=== PATIENT | female | born 1990 | race Caucasian/White ===

== ENCOUNTER 2016-07-14 01:40 | Inpatient (IN) | payer OTHER, BC ==
[~2016-07-14] VITALS: Ht 160 cm; Wt 104.3 kg
[~2016-07-14 01:40] MED LIST: BCPILLS PO; RANI300T2 PO
[2016-07-14] MEDS ORDERED: PRENTAB26 PO (01:58)
[2016-07-14 01:59] VITALS: Ht 160 cm; Wt 104.3 kg
[2016-07-14] MEDS ORDERED: LACTATED RINGER'S 1000ML 1,000 ML IV SCH (02:10)
[2016-07-14] MEDS ORDERED: LACTATED RINGER'S 1000ML 1,000 ML IV PRN (02:10)
[2016-07-14] MEDS ORDERED: BUPIVACAINE 0.25% 30 ML VIAL ONE (02:15)
[2016-07-14] MEDS ORDERED: EpHEDrine SULFATE INJ 50 MG/ML AMP ONE (02:15)
[2016-07-14] MEDS ORDERED: FENTANYL 2MCG/ML ROPIV 1.25MG/ML 100ML BAG EPI ONE (02:16)
[2016-07-14] MEDS ORDERED: FENTANYL CITRATE INJ 50 MCG/1 ML 2 ML VIAL ONE (02:16)
[2016-07-14 02:24] LABS: HEMATOCRIT 36.4 % (37-47); MEAN CELL VOLUME 81.8 fL (80-100); MEAN CORPUSCULAR HEMOGLOBIN 28.5 pg (25-34); MEAN PLATELET VOLUME 11.8 fL (7.4-10.4); PLATELET COUNT 188 K/uL (130-400); RED BLOOD COUNT 4.45 M/uL (4.2-5.4); WHITE BLOOD COUNT 13.04 K/uL (4.8-10.8)
[2016-07-14 02:27] LABS: MEAN CORPUSCULAR HGB CONC 34.9 g/dl (32-36)
[2016-07-14] MEDS ORDERED: NALOXONE HCL INJ 1 MG in SODIUM CHLORIDE 0.9% 1000ML 1,000 ML IV PRN ×4 (03:22)
[2016-07-14] MEDS ORDERED: LACTATED RINGER'S 1000ML 500 ML IV PRN (03:22)
[2016-07-14] MEDS ORDERED: NALOXONE HCL INJ 0.4 MG/1 ML VIAL/CARP IV PRN (03:30)
[2016-07-14] MEDS ORDERED: NALBUPHINE HCL INJ 10 MG/ML AMP IV PRN (03:30)
[2016-07-14] MEDS ORDERED: ONDANSETRON INJ 2 MG/ML 2 ML VIAL IV PRN (03:30)
[2016-07-14] MEDS ORDERED: FENTANYL 2MCG/ML ROPIV 1.25MG/ML 100ML BAG EPI PRN (03:30)
[2016-07-14] MEDS ORDERED: EpHEDrine SULFATE INJ 50 MG/ML AMP IV PRN (03:30)
[2016-07-14] MEDS ORDERED: DiphenhydrAMINE HCL 50 MG/ML VIAL IV PRN (03:30)
[2016-07-14] MEDS ORDERED: PROMETHAZINE HCL INJ 25 MG in SODIUM CHLORIDE 0.9% 50ML 50 ML IV PRN (03:30)
[2016-07-14] MEDS ORDERED: OXYTOCIN 30 UNITS/500ML NSS IV ONE (05:06)
[2016-07-14] MEDS ORDERED: BENZOCAINE 20% AER SPR 82.5 GM CAN EXT PRN (05:45)
[2016-07-14] MEDS ORDERED: SUPERCREAM 0.870 % 15GM JAR EXT PRN (05:45)
[2016-07-14] MEDS ORDERED: HYDROCORTISONE ACETATE 25 MG SUPP PR PRN (05:45)
[2016-07-14] MEDS ORDERED: LANOLIN OINT EXT PRN ×2 (05:45)
[2016-07-14] MEDS ORDERED: ACETAMINOPHEN/CODEINE 300/30MG TAB PO PRN ×2 (05:45)
[2016-07-14] MEDS ORDERED: ACETAMINOPHEN 325 MG TAB PO PRN (05:45)
[2016-07-14] MEDS ORDERED: OXYTOCIN 30 UNITS/500ML NSS IV PRN (05:45)
[2016-07-14] MEDS: IBUPROFEN 600 MG TAB PO PRN ×3 (06:28→17:33)
--- NOTE | 2016-07-14 09:29 | DELIVERY SUMMARY ---
DATE OF OPERATION: 07/14/2016 DATE OF DELIVERY: 07/14/2016. FINDINGS: Viable male with Apgars of 8 and 9. The baby delivered spontaneously over a midline second degree laceration. Thick meconium. Vigorous cry at , terminating meconium resuscitation. Cord gases, cord blood samples obtained. Placenta delivered spontaneously. Laceration repair with 4-0 Vicryl in a routine. ESTIMATED BLOOD LOSS: 300 mL. LABOR NOTE: The patient is a 25-year-old 1 para 0 with and EDC of 12 July at 40 plus weeks gestational age, who presented to labor and delivery in active labor. Contractions began late in the p.m. of the and increased in intensity. She denied rupture of membranes or vaginal bleeding. The patient with a history of PCOS and conceived this on Femara. She had a positive chlamydia culture on her first visit, treated with Zithromax. Repeat culture were negative. Father of the baby with a history of a congenital heart defect. The patient had a echo, which was within normal limits. blood work showed blood type of A+, antibody negative. Rubella immune. Hepatis B negative. She had a negative quad screen. She had an elevated 1 hour Glucola at 16 weeks with normal 2 hour glucose tolerance test at 16 and 28 weeks. She had a negative third trimester beta strep culture. Upon admission the patient was 5-6 cm dilated, in active labor. Tracing was a category 2. Anesthesia was consulted and an epidural was placed. The patient progressed to full dilatation. Had rupture of membranes with thick meconium. The patient began her second stage and pushed very effectively. There were deep decelerations during the second stage, treated with IV fluids and oxygen. The patient pushed for approximately 20 minutes delivering the viable male . There was a good vigorous cry at , terminating meconium resuscitation. Cord gases, cord blood samples obtained. Placenta was delivered spontaneously and meconium stained. Inspection of the perineum showed a midline second degree laceration. This was repaired with 4-0 Vicryl. Estimated blood loss 300 mL. Sponge and needle count was correct. I attest to the content of the Intraoperative Record and any orders documented therein. Any exceptio ns are noted below.
[2016-07-14 10:20] VITALS: BP 145/86; PULSE 86; TEMP 36.5; O2SAT 98
[2016-07-14] MEDS: DOCUSATE SODIUM 100 MG CAP PO SCH ×2 (10:37→20:27)
[2016-07-14] MEDS: PRENATAL VITAMIN TAB PO SCH (10:37)
[2016-07-14] MEDS: FERROUS SULFATE 325 MG TAB PO SCH (10:38)
[2016-07-14] MEDS ORDERED: LIDOCAINE HCL 2% JELLY 30 ML TUBE EXT ONE (11:22)
--- NOTE | 2016-07-14 11:48 | Anesthesia Procedure Note ---
Anesthesia Epidural Removal Nt Date & Time Jul 14, 2016 at 11:47 Vital Signs Pain Intensity: 4.0 Notes Mental Status: alert / awake / arousable, participated in evaluation Nausea / Vomiting: adequately controlled Pain: adequately controlled Airway Patency, RR, SpO2: stable & adequate BP & HR: stable & adequate Hydration State: stable & adequate Neuraxial Anesthesia: was administered, sensory block is resolving Anesthetic Complications: no major complications apparent, pt satisfied with anesthetic care Epidural: removed without complications, with tip intact
[2016-07-14 12:00] VITALS: BP 148/86; PULSE 93; TEMP 36.7
[2016-07-14 12:30] VITALS: BP 147/91
[2016-07-14 15:50] VITALS: BP 127/86; PULSE 99; TEMP 36.7; O2SAT 97
[2016-07-14 20:30] VITALS: BP 141/88; PULSE 78; TEMP 36.6
[2016-07-14 23:30] VITALS: BP 128/85; PULSE 80; TEMP 36.8
[2016-07-15 04:00] VITALS: BP 130/80; PULSE 79; TEMP 36.7
--- NOTE | 2016-07-15 06:22 | Progress Note ---
Subjective Jul 15, 2016. Subjective conversation w/ patient, physical exam Ambulation: ambulating normally Voiding: bennett catheter in place Passing Gas: Yes Diet Tolerance: Regular Diet Lochia: Small Feeding Type: Breast Feeding Pain: No pain reported this morning, patient has taken Motrin overnight Review of Systems Constitutional: No chills, No fever Respiratory: No cough, No shortness of breath Cardiac: No chest pain Breast: No breast pain Abdomen: No nausea, No pain, No vomiting Female : No dysuria Objective Vital Signs Date Time Temp Pulse Resp B/P Pulse Ox O2 Delivery O2 Flow Rate FiO2 07/15/16 04:00 36.7 79 18 130/80 Room Air 07/14/16 23:30 Room Air 07/14/16 23:30 36.8 80 16 128/85 Room Air 07/14/16 20:30 36.6 78 16 141/88 Room Air 07/14/16 15:50 97 Room Air 07/14/16 15:50 36.7 99 16 127/86 97 Room Air 07/14/16 12:30 147/91 07/14/16 12:00 36.7 93 20 148/86 Room Air 07/14/16 10:20 36.5 86 20 145/86 98 Room Air 07/14/16 10:20 Room Air Physical Exam General Appearance: WELL-APPEARING, WD/WN, NO APPARENT DISTRESS Respiratory/Chest: lungs clear, normal breath sounds Cardiovascular: regular rate, rhythm, no gallop, no murmur Abdomen: normal bowel sounds, non tender, soft Fundus: Firm, Relation to Umbilicus (At umbilicus) Extremities: no calf tenderness Laboratory Results Last 24 Hours Test 07/15/16 04:44 Medications Current Inpatient Medications Medications (Trade) Dose Ordered Sig/Tess Route Start Time Stop Time Status Last Admin Dose Admin Lactated Ringer's (Lr 1000ml) 1,000 ml @ 125 mls/hr Q8H IV 07/14/16 02:10 07/16/16 02:09 07/14/16 03:20 125 MLS/HR Oxytocin (Pitocin IV) 30 units UD PRN IV 07/14/16 05:45 08/13/16 05:44 Benzocaine (Dermoplast Aero Spr) 1 appln PRN PRN EXT 07/14/16 05:45 08/13/16 05:44 07/14/16 09:07 1 APPLN Cocaine HCl (Supercream 0.870% Cr) BID PRN EXT 07/14/16 05:45 07/28/16 05:44 Hydrocortisone Acetate (Anusol Hc Supp) 25 mg BID PRN VA 07/14/16 05:45 08/13/16 05:44 Lanolin (Lanolin Oint) PRN PRN EXT 07/14/16 05:45 08/13/16 05:44 Prenat Multivit/ General Office Dispatcher/Iron/Folic Ac ( Vitamin Tab) 1 tab DAILY PO 07/14/16 08:00 08/13/16 07:59 07/14/16 10:37 1 TAB Ibuprofen (Motrin Tab) 600 mg Q4H PRN PO 07/14/16 05:45 08/13/16 05:44 07/14/16 17:33 600 MG Acetaminophen (Tylenol Tab) 650 mg Q6H PRN PO 07/14/16 05:45 08/13/16 05:44 Acetaminophen/ Codeine Phosphate (Tylenol w/ Codeine #3 Tab) 1 tab Q4H PRN PO 07/14/16 05:45 08/13/16 05:44 Acetaminophen/ Codeine Phosphate (Tylenol w/ Codeine #3 Tab) 2 tab Q4H PRN PO 07/14/16 05:45 08/13/16 05:44 Bisacodyl (Dulcolax Tab) 5 mg 20 PO 07/15/16 20:00 07/15/16 20:01 Docusate Sodium (coLACE CAP) 100 mg BID PO 07/14/16 08:00 08/13/16 07:59 07/14/16 20:27 100 MG Ferrous Sulfate (Feosol Tab) 325 mg DAILY PO 07/14/16 08:00 08/13/16 07:59 07/14/16 10:38 325 MG Assessment and Plan Post- Day#: 1 Continue Routine Care: - Vital Signs reviewed and WNL (temp max 36.8) - Blood Type: A+, GBS- , Rubella Immune - Patient doing well clinically - Encourage Ambulation today - Pain well controlled with Motrin - Tolerating PO diet - Remove bennett this morning Resident Physician Supervision Note: I interviewed and examined the patient. Discussed with Dr. Dloomy and agree with findings and plan as documented in the note. Any exceptions or clarifications are listed here: Pt with urinary retention requiring Bennett insertion. Will remove after 24 hours and reassess. Documented By: Aniket William
[2016-07-15 08:41] LABS: HEMATOCRIT 33.2 % (37-47)
[2016-07-15 08:45] VITALS: BP 128/83; PULSE 88; TEMP 36.5
[2016-07-15] MEDS: FERROUS SULFATE 325 MG TAB PO SCH (08:52)
[2016-07-15] MEDS: IBUPROFEN 600 MG TAB PO PRN ×2 (08:52→21:05)
[2016-07-15] MEDS: DOCUSATE SODIUM 100 MG CAP PO SCH ×2 (08:53→20:04)
[2016-07-15] MEDS: PRENATAL VITAMIN TAB PO SCH (08:53)
[2016-07-15 15:45] VITALS: BP 124/85; PULSE 87; TEMP 36.7
[2016-07-15] MEDS ORDERED: BISACODYL 5 MG TABEC PO SCH (20:00)
[2016-07-15 23:35] VITALS: BP 125/85; PULSE 96; TEMP 36.7
--- NOTE | 2016-07-16 06:34 | Progress Note ---
Subjective Jul 16, 2016. Subjective conversation w/ patient, physical exam Ambulation: ambulating normally Voiding: no voiding problems Passing Gas: Yes Diet Tolerance: Regular Diet Lochia: Small Feeding Type: Breast Feeding Pain: No pain reported this morning Review of Systems Constitutional: No chills, No fever Respiratory: No cough, No shortness of breath Cardiac: No chest pain Breast: No breast pain Abdomen: No nausea, No pain, No vomiting Female : No dysuria Objective Vital Signs Date Time Temp Pulse Resp B/P Pulse Ox O2 Delivery O2 Flow Rate FiO2 07/15/16 23:35 36.7 96 18 125/85 Room Air 07/15/16 23:35 Room Air 07/15/16 15:45 36.7 87 18 124/85 Room Air 07/15/16 15:45 Room Air 07/15/16 08:45 36.5 88 18 128/83 Room Air Physical Exam General Appearance: WELL-APPEARING, WD/WN, NO APPARENT DISTRESS Respiratory/Chest: lungs clear, normal breath sounds Cardiovascular: regular rate, rhythm, no gallop, no murmur Abdomen: normal bowel sounds, non tender, soft Fundus: Firm, Relation to Umbilicus (At umbilicus) Extremities: no calf tenderness Laboratory Results Last 24 Hours Test 07/15/16 08:26 Hemoglobin 11.4 g/dL Hematocrit 33.2 % Medications Current Inpatient Medications Medications (Trade) Dose Ordered Sig/Tess Route Start Time Stop Time Status Last Admin Dose Admin Oxytocin (Pitocin IV) 30 units UD PRN IV 07/14/16 05:45 08/13/16 05:44 Benzocaine (Dermoplast Aero Spr) 1 appln PRN PRN EXT 07/14/16 05:45 08/13/16 05:44 07/14/16 09:07 1 APPLN Cocaine HCl (Supercream 0.870% Cr) BID PRN EXT 07/14/16 05:45 07/28/16 05:44 Hydrocortisone Acetate (Anusol Hc Supp) 25 mg BID PRN ND 07/14/16 05:45 08/13/16 05:44 Lanolin (Lanolin Oint) PRN PRN EXT 07/14/16 05:45 08/13/16 05:44 Prenat Multivit/ Double Bottom Driver/Iron/Folic Ac ( Vitamin Tab) 1 tab DAILY PO 07/14/16 08:00 08/13/16 07:59 07/15/16 08:53 1 TAB Ibuprofen (Motrin Tab) 600 mg Q4H PRN PO 07/14/16 05:45 08/13/16 05:44 07/15/16 21:05 600 MG Acetaminophen (Tylenol Tab) 650 mg Q6H PRN PO 07/14/16 05:45 08/13/16 05:44 Acetaminophen/ Codeine Phosphate (Tylenol w/ Codeine #3 Tab) 1 tab Q4H PRN PO 07/14/16 05:45 08/13/16 05:44 Acetaminophen/ Codeine Phosphate (Tylenol w/ Codeine #3 Tab) 2 tab Q4H PRN PO 07/14/16 05:45 08/13/16 05:44 Docusate Sodium (coLACE CAP) 100 mg BID PO 07/14/16 08:00 08/13/16 07:59 07/15/16 20:04 100 MG Ferrous Sulfate (Feosol Tab) 325 mg DAILY PO 07/14/16 08:00 08/13/16 07:59 07/15/16 08:52 325 MG Assessment and Plan Post- Day#: 2 Continue Routine Care: - Vital Signs reviewed and WNL (temp max 36.7) - Blood Type: A+, GBS- , Rubella Immune - Patient doing well clinically - Encourage Ambulation today - Pain well controlled with Motrin - Tolerating PO diet - Gómez removed yesterday and voiding well, no feelings of residual retention - Discharge today Resident Physician Supervision Note: I interviewed and examined the patient. Discussed with Dr. Avitia and agree with findings and plan as documented in the note. Any exceptions or clarifications are listed here: [None] Documented By: Wan Caballero
--- NOTE | 2016-07-16 06:36 | Discharge Instructions ---
Discharge Instructions Admission Reason for Admission: LABOR (Gopal Avitia MD) Discharge Discharge Diagnosis / Problem: Vaginal Delivery (Gopal Avitia MD) Discharge Goals Goal(s): Routine recovery after delivery (Gopal Avitia MD) Medications Continue Dispensed Medications: supercream, dermaplast, tucks, lansinoh (Gopal Avitia MD) Activity Recommendations Activity Limitations: per Instructions/Follow-up section . (Gopal Avitia MD) Instructions / Follow-Up Instructions / Follow-Up ACTIVITY RECOMMENDATIONS: * Gradual return to full activity over the next 2-3 weeks. * No lifting - nothing heavier than baby over the next 2-3 weeks. * Do not engage in vigorous exercise, sexual activity or sports until cleared by your physician. * Do not drive or operate any motorized equipment until cleared by your physician. * You may shower/bathe daily. MEDICATIONS: For discomfort or pain, you may use Acetaminophen (Tylenol), Ibuprofen (Advil), or Naproxen (Aleve) following the package directions. For constipation you may use Colace following the package directions. BREAST CARE: If you are not breast feeding: * Wear a supportive bra 24 hours a day for one to two weeks. * Avoid stimulating your breasts and nipples as much as possible during the first few weeks after delivery. * When taking a shower, have the warm water hit your back, not breasts. * When your breasts feel full, apply ice packs. Usually three to four times a day helps ease the discomfort. * Take a mild pain medication (Tylenol / Motrin) when you are uncomfortable. If breast feeding: * Use breast milk to lubricate nipples. Lansinoh cream may be used for sore nipples. You do not need to remove cream prior to breast feeding. If using a different brand of cream, check the label for directions regarding removal of cream prior to nursing. * Wear a supportive bra. * If having problems with breasts or breast feeding, call a network security consultant or your health care provider. EPISIOTOMY CARE: After delivery, if you have an episiotomy (stitches), the following steps will ease discomfort and aid healing. * For the first 24 hours after delivery, place ice packs next to your episiotomy to help reduce swelling. * After the first 24 hour-period, sitz baths, either portable or in the tub, are suggested. A shower with a shower arm sprayed over the episiotomy may be comforting. * Alyssia care should be done after each voiding and bowel movement. Squirt warm water from a plastic bottle over the perineum (region of the body between the anus and urinary opening) and pat dry. * Use Dermoplast to ease discomfort. Shake container. [place] directly over the episiotomy. Place a Tucks on a clean sanitary pad next to your episiotomy. SPECIAL CARE INSTRUCTIONS: When you are discharged from the hospital, it is important for you to follow the instructions listed below: * During the first week at home, you should be able to care for yourself and your baby. In addition, the usual light household activities are encouraged. * Limit your activities to the way you feel. Do not try to clean the house or move furniture. Be sensible. * If you actively engage in sports and have done so up until the time of your delivery, you may resume these activities as soon as you feel able. This may take up to one month or even longer. Use good judgment. * Continue to take your vitamins for at least six weeks after the of your baby. * Your diet need not be limited unless you were on a special diet before your delivery. Breast-feeding mothers need around 2500 calories per day and at least 64-80 ounces of fluid per day (8 to 10 glasses). * You should eat foods from the four major food groups. Crash diets or fad diets are to be avoided. Eating lean meats, fresh fruits and vegetables, low-fat dairy products, high fiber foods and a regular exercise program, will help you get back to your pre- weight without putting your health at risk. * Constipation is sometimes a problem after delivery. Take a mild laxative as needed. If breast feeding, Milk of Magnesia is acceptable to use. You may use a suppository or Fleets enema if no episiotomy. * A daily shower or tub bath is suggested. Be sure to thoroughly and gently dry the perineum. * A bloody vaginal discharge will usually continue until around four weeks post . A small amount of bleeding may continue for as long as six weeks. Vaginal discharge changes from the bright red bleeding after delivery to pink then brownish and finally yellowish-pink before becoming white and disappearing. * Bleeding may increase with activity. Your first period may come in 4-8 weeks. If you are breast feeding, your period may be delayed even longer. * [place] (sex) can begin whenever both you and your partner feel comfortable and do not have any form of genital infection. It is recommended that you wait at least six weeks for internal and external healing to occur. If you have questions, please talk to your health care practitioner. A condom should be used to prevent infection and . * Foreplay, gentle intercourse and lubrication is very important the first several times to prevent pain. A water-based lubricant such as K-Y jelly or Astroglide may be used. * If you have RH negative blood and your baby is RH positive, you will receive RHOGAM by injection prior to discharge. The nurse will give you a card to keep with you that has the date and place that you received RHOGAM after delivery. * During your care, you had a Rubella screen done to check for the presence of rubella antibodies in your blood. If your test was negative, you will receive a Rubella vaccine prior to discharge. This vaccine may cause a fever, soreness at the injection site and flu-like symptoms. If these symptoms persist, notify your health care practitioner. is not advised for one month after a Rubella vaccine. * Verbalizes understanding of car seat law as reviewed with patient nursing. * Car Seat hand-out given and reviewed with patient by nursing. * Shaken baby information reviewed with patient by nursing. Call you doctor if: * Heavy bleeding (saturating several pads an hour) or passing clots the size of your fist. * A fever >101 degrees F (38.3 degrees C) on two occasions four hours apart and /or chills. * Unusual pain in the pelvic or vaginal areas. * "Baby Blues" lasting longer than two weeks. If you have any questions or concerns, call your health care practitioner at . FOLLOW UP VISIT: * Please call the office at to schedule a 6 week examination. It is important you keep this appointment. It is important for you to make arrangements for either yearly or twice yearly check-ups thereafter. (Gopal Avitia MD) Current Hospital Diet Patient's current hospital diet: Regular OB Diet (Gopal Avitia MD) Discharge Diet Recommended Diet: Regular Diet (Gopal Avitia MD) Pending Studies Studies pending at discharge: no (Gopal Avitia MD) Laboratory Results Lipid Panel Test 04/16/16 07:00 Range/Units Triglycerides Level 300 H 0-150 mg/dl Cholesterol Level 201 H 0-200 mg/dl HDL Cholesterol 44 mg/dl Cholesterol/HDL Ratio 4.6 LDL Cholesterol, Calculated 97 mg/dl (Gopal Avitia MD) Medical Emergencies . Who to Call and When: Medical Emergencies: If at any time you feel your situation is an emergency, please call 911 immediately. . (Gopal Avitia MD) Non-Emergent Contact Non-Emergency issues call your: [place] . (Gopal Avitia MD) . "Provider Documentation" section prepared by Gopal Avitia. (Gopal Avitia MD) VTE Core Measure Inpt VTE Proph given/why not?: Treatment not indicated (Gopal Avitia MD)
[2016-07-16 07:50] VITALS: BP 125/83; PULSE 83; TEMP 36.5
[2016-07-16] MEDS: DOCUSATE SODIUM 100 MG CAP PO SCH (07:53)
[2016-07-16] MEDS: FERROUS SULFATE 325 MG TAB PO SCH (07:53)
[2016-07-16] MEDS: PRENATAL VITAMIN TAB PO SCH (07:53)
[2016-07-16] MEDS: IBUPROFEN 600 MG TAB PO PRN (08:47)
[2016-07-16 10:10] VITALS: BP_DIAS 83; PULSE 83; TEMP 36.5
== END 2016-07-16 11:05 | disposition home or self-care (01) | DRG 774 ==
LOC: C.LD 01:40 → C.OPB 01:40 → C.LD 02:12 → C.OPB 02:12 → C.OBG 09:13
PROVIDERS: ADMIT Obstetrics & Gynecology; ATTEND Obstetrics & Gynecology
PROC: 10E0XZZ Delivery of Products of Conception, External Approach (ICD-10-PCS; principal; 2016-07-14)
PROC: 0KQM0ZZ Repair Perineum Muscle, Open Approach (ICD-10-PCS; principal; 2016-07-14)
DX: O48.0 Post-term pregnancy (principal); O98.32 Other infections with a predominantly sexual mode of transmission complicating childbirth; Z68.41 Body mass index [BMI] 40.0-44.9, adult; O99.354 Diseases of the nervous system complicating childbirth; O77.0 Labor and delivery complicated by meconium in amniotic fluid; O70.1 Second degree perineal laceration during delivery; A56.8 Sexually transmitted chlamydial infection of other sites; G43.909 Migraine, unspecified, not intractable, without status migrainosus; E66.01 Morbid (severe) obesity due to excess calories; O99.214 Obesity complicating childbirth; O99.02 Anemia complicating childbirth; D64.9 Anemia, unspecified; O76 Abnormality in fetal heart rate and rhythm complicating labor and delivery; O99.284 Endocrine, nutritional and metabolic diseases complicating childbirth; E28.2 Polycystic ovarian syndrome; O90.89 Other complications of the puerperium, not elsewhere classified; R33.9 Retention of urine, unspecified; Z37.0 Single live birth; Z3A.40 40 weeks gestation of pregnancy

== ENCOUNTER → 2016-09-12 | Outpatient (CLI) | payer BC, OTHER ==
[~2016-09-12] MED LIST changes: -BCPILLS PO; +PRENTAB26 PO; -RANI300T2 PO
[2016-09-12 12:50] LABS: URINE APPEARANCE CLEAR (CLEAR); URINE BILIRUBIN NEG (NEG); URINE COLOR YELLOW; URINE EPITHELIAL CELL AUTO >30 /lpf (0-5); URINE NITRITE NEG (NEG); URINE SPECIFIC GRAVITY 1.019 (1.000-1.030); UROBILINOGEN NEG (NEG)
[2016-09-12 12:56] LABS: MANUAL MICROSCOPIC REQUIRED? NO; REVIEW REQ? NO
== END | disposition home or self-care (01) ==
LOC: C.LABSPEC 11:38
PROVIDERS: ATTEND Obstetrics & Gynecology
DX: R39.9 Unspecified symptoms and signs involving the genitourinary system (principal)

== ENCOUNTER → 2016-12-13 | Outpatient (CLI) | payer OTHER ==
[2016-12-13 09:54] LABS: CHOLESTEROL 198 mg/dl (0-200); GLUCOSE,FASTING 93 mg/dl (70-99); TRIGLYCERIDES 166 mg/dl (0-150)
[2016-12-13 10:03] LABS: HDL CHOLESTEROL 42 mg/dl
== END | disposition home or self-care (01) ==
LOC: C.LAB1850 07:23
PROVIDERS: ATTEND Obstetrics & Gynecology
DX: Z00.00 Encounter for general adult medical examination without abnormal findings (principal)

== ENCOUNTER → 2017-09-25 | Outpatient (CLI) | payer OTHER | END | disposition home or self-care (01) | LOC: C.PAPS 09:07 | PROVIDERS: ATTEND Obstetrics & Gynecology | DX: Z01.419 Encounter for gynecological examination (general) (routine) without abnormal findings (principal) ==

== ENCOUNTER 2020-05-11 10:36 | Inpatient (IN) ==
--- NOTE | 2020-05-11 11:35 | History & Physical Report ---
Date of Service May 11, 2020 Assessment & Plan (1) Breech presentation of fetus: 29 y/o at 39 wga presenting with anhydramnios and breech presentation 1. VSS 2. Fetus cat 1 3. Anhydramnios - given new dx would rec delivery today rather than defer delivery until scheduled CS tomorrow. BSUS confirmed breech presentation still, Discussed ECV vs CS, pt had previously declined ECV and declined today. Discussed indications, risks, benefits, and alternatives to CS w/ risks for CS including infection, bleeding, injury to adjacent structures (bowel, bladder, ureters, blood vessels, nerves, baby), possible need for life saving blood transfusion and/or hysterectomy. Pt and verbalized understanding, consent signed. 4. Last ate at 7am, as fetus looks reactive currently, anesthesia recommends waiting until 1pm for delivery but will proceed sooner if tracing becomes co ncerning 5. GDM - will obtain BG on admission History of Present Illness Chief Complaint: Anhydramnios, breech Primary Care Provider: Lyndon Hampton, DO 29 y/o at 39 wga w/ ZEV 05/18/20 by LMP 08/12/19 c/w 1st tri US presents to L&D for delivery. Pt was seen today as pre-op in clinic for planned primary CS tomorrow due to breech presentation. At [facility] today, NST obtained for velamentous cord insertion was NR. BPP 6/8, -2 due to no measurable fluid pocket. Given GA and anhydramnios, recommended to present to L&D for delivery. On arrival +FM and irreg ctx; denies LOF or VB PNI: 1. Breech presentation 2. Vanishing twin ~8wks 3. HR panorama x 3, unclear if due to aneuploidy of current fetus or from vanishing twin. Was offered MFM c/s, pt did not see them and would not accept invasive testing 4. Velamentous cord insertion 5. A1GDM, reports postprandials 120s-130s, was told did not need to do fastings 6. Hypothyroid, synthroid 150mcg. Needs to re-est with PCP for mgt pp 7. FOB w/ CHD did not need surgery, echo wnl 8. Hx chlamydia 09/2019, neg JOHNATHAN at 28 wks Past [employer] Hx: G1 at 40 wks G2 current Menarche 12, periods irreg prev and needed provera due to PCOS Hx chlamydia in this Last pap 09/2019 ASCUS/-HPV Allergies Allergy/AdvReac Type Severity Reaction Status Date / Time No Known Allergies Allergy Verified 05/11/20 09:07 Home Medications Home Medications Medication Instructions Recorded Confirmed Type prenat.vits,fito,mzy-unug-jeaqs 1 tab PO PM 09/29/19 05/11/20 History acetone (urine) test #50 ea 03/07/20 05/11/20 Rx blood sugar diagnostic #150 ea 03/07/20 05/11/20 Rx blood-glucose meter #1 ea 03/07/20 05/11/20 Rx lancets 33 gauge #150 ea 03/07/20 05/11/20 Rx levothyroxine 150 mcg PO QAM 05/10/20 05/11/20 History Patient History Medical History Gestational diabetes mellitus (GDM) in third trimester Hx of chlamydia infection HX Hx of varicella Hypothyroidism Ovarian cyst JUST MONITORING PCOS (polycystic ovarian syndrome) Surgical History S/P cholecystectomy [place] teeth removed Family History Uncle Cancer Aunt Breast cancer Social History Smoking Status: Never smoker Second Hand Exposure: No; Do You Dip or Chew Tobacco: No; Tobacco Cessation Education Requested by Patient: No Hx Alcohol Use: No Hx Substance Use: No Preferred Language: Azeri Communication Ability: Effective Human Resource Consultant Required: No Beliefs That Will Affect Care: None marital status: marital status details: Gualberto Garcia (29) [phone] Current Living Situation: Spouse Current Living Situation Comment: lives with spouse and son, 2 dogs current occupational status: employed current occupation: [employer] Other Information That Helps Us Care for You: No Feels Safe at Home: Yes Safety Concerns: Feels Safe At This Time Assistive Devices: Contacts and Glasses Physical Exam Constitutional: WD/WN, vitals as above no acute distress Respiratory: normal respiratory effort; no respiratory distress and no labored breathing Gastrointestinal (Abdomen): Inspection/Auscultation: abdomen normal to inspection Percussion/Palpation: abdomen soft (gravid); abdomen nontender and no guarding Genitourinary: OB Exam Abdomen: + breech (by BSUS on L&D) and + irregular contractions OB Exam Monitor Tracing: + external FHT monitor used, + external uterine monitor used and + category I (140/mod/+accel/-decel) Results & Data ([facility]) Vital Signs (Past 12 Hours) Vital Signs Temp Pulse Resp BP 05/11/20 10:48 99.1 F 20 05/11/20 10:45 100 H 142/89 H Laboratory Results A+ RPR NR Hep B NR rubella immune GC neg CT + 09/2019, neg JOHNATHAN HIV neg GBS neg COVID neg ant plac HR cfDNA x 3, see PNI Coding Level of Care Code None Diagnoses Breech presentation of fetus O32.1XX0
[2020-05-11] MEDS ORDERED: LACTATED RINGER'S 1,000 ML IV SCH (11:45)
[2020-05-11] MEDS ORDERED: CITRIC ACID/SODIUM CITRATE 15 ML UDC PO SCH (12:00)
[2020-05-11 12:01] LABS: Basophils # (auto) 0.02 K/uL (0-0.2); Basophils % (auto) 0.2 %; Eosinophils # (auto) 0.06 K/uL (0-0.5); Eosinophils % (auto) 0.6 %; Hematocrit (blood only) 37.3 % (37-47); Hemoglobin 12.4 g/dL (12.0-16.0); Immature Granulocytes # (auto) 0.06 K/uL (0.00-0.02); Immature Granulocytes % (auto) 0.6 %; Lymphocytes # (auto) 1.88 K/uL (1.2-3.4); Lymphocytes % (auto) 17.7 %; Mean Corpuscular Hemoglobin 28.6 pg (25-34); Mean Corpuscular Volume 85.9 fL (80-100); Mean Platelet Volume 11.4 fL (7.4-10.4); Monocytes # (auto) 0.88 K/uL (0.11-0.59); Monocytes % (auto) 8.3 %; Neutrophils # (auto) 7.75 K/uL (1.4-6.5); Neutrophils % (auto) 72.6 %; Platelet Count 214 K/uL (130-400); RDW Coefficient of Variation 14.2 % (11.5-14.5); RDW Standard Deviation 44.6 fL (36.4-46.3); Red Blood Count 4.34 M/uL (4.2-5.4); White Blood Count 10.65 K/uL (4.8-10.8)
[2020-05-11 12:23] LABS: Mean Corpuscular Hgb Conc 33.2 g/dL (32-36)
[2020-05-11] MEDS ORDERED: OXYTOCIN 10 UNITS/ML VIAL ONE (12:50)
[2020-05-11] MEDS ORDERED: fentaNYL citrate 100 MCG/2 ML VIAL ONE (12:50)
[2020-05-11] MEDS ORDERED: MoRPHine SULFATE PF 1 MG/ML 10 ML AMP/VIAL ONE (12:50)
[2020-05-11 12:51] LABS: Alanine Aminotransferase 15 U/L (12-78); Albumin Level 2.6 gm/dl (3.4-5.0); BUN Creatinine Ratio 10.9 (10-20); Blood Urea Nitrogen 5 mg/dl (7-18); Calcium 8.7 mg/dl (8.5-10.1); Carbon Dioxide 20 mmol/L (21-32); Chloride 113 mmol/L (98-107); Creatinine Clr Calc Pharmacy 195.7 ml/min; Est GFR (African American) > 150.0; Est GFR (Non-African American) 131.7; Glucose 68 mg/dl (70-99); Potassium 3.8 mmol/L (3.5-5.1); Sodium 141 mmol/L (136-145)
[2020-05-11 12:54] LABS: Albumin Globulin Ratio 0.7 (0.9-2); Alkaline Phosphatase 166 U/L (45-117); Aspartate Aminotransferase 10 U/L (15-37); Bilirubin,Total 0.3 mg/dl (0.2-1); Globulin 3.7 gm/dl (2.5-4.0); Total Protein 6.3 gm/dl (6.4-8.2)
--- NOTE | 2020-05-11 13:02 | Anesthesiology Consultation ---
Date of Service May 11, 2020 Assessment & Plan ASA ASA2 Proposed Anesthesia Anesthesia Type: General and MAC Spinal Risk / Benefits Reviewed With: PT / POA / Parent / Guardian, Accepts Plan and Informed Consent Obtained History Surgery Operation Date: 05/11/20 10:45 Proposed Procedures p Section in LD - Martine May MD Operation Date: 05/12/20 07:30 Proposed Procedures p Section - Shawna Pena DO Height/Weight Height: 5 ft 3 in Weight: 104.326 kg Allergies Allergy/AdvReac Type Severity Reaction Status Date / Time No Known Allergies Allergy Verified 05/11/20 09:07 Medications Home Medications Medication Instructions Recorded Confirmed Last Taken prenat.vits,fito,bvg-ercp-pmvhw 1 tab PO PM 09/29/19 05/11/20 05/11/20 04:00 acetone (urine) test #50 03/07/20 05/11/20 Unknown blood sugar diagnostic #150 ea 03/07/20 05/11/20 Unknown blood-glucose meter #1 ea 03/07/20 05/11/20 Unknown lancets 33 gauge #150 ea 03/07/20 05/11/20 Unknown levothyroxine 150 mcg PO QAM 05/10/20 05/11/20 05/11/20 04:00 NPO Date Last Intake of Fluids: 05/11/20 Time Last Intake of Fluids: 07:00 Date Last Intake of Solids: 05/11/20 Time Last Intake of Solids: 07:00 Past Medical History Medical History Gestational diabetes mellitus (GDM) in third trimester Hx of chlamydia infection HX Hx of varicella Hypothyroidism Ovarian cyst JUST MONITORING PCOS (polycystic ovarian syndrome) Exercise / Class Metabolic Activity II 4-5 Yardwork/Stairs/Walk up hill Past Family History Family History Uncle Cancer Aunt Breast cancer Past Surgical History Surgical History S/P cholecystectomy Sherrill teeth removed Past Anesthesia History No Hx of Anesthesia Complications and No Family Hx of Anesthesia Complications History of PONV No Hx of PONV and No Hx of Motion Sickness Social History Smoking Status: Never smoker Do You Dip or Chew Tobacco: No Hx Alcohol Use: No Hx Substance Use: No substance use type: does not use Review of Systems denies fever/cough/ colds/ chest pain/ SOB/ BECKA denies BECKA Physical Exam Vital Signs Last Vital Signs Temp 37.3 C 05/11/20 10:48 Pulse 93 H 05/11/20 12:51 Resp 20 05/11/20 10:48 BP 143/79 H 05/11/20 12:51 ENMT Mouth: no TMJ abnormality and no dentition abnormality Thyromental Distance: > or= 3.5 Finger Breadths Mallampati Class: II Neck neck extension not limited Respiratory normal respiratory effort; no respiratory distress Auscultation: lungs clear to auscultation bilaterally Cardiovascular Rate/Rhythm: regular rate and regular rhythm Neurologic moves all extremities Psychiatric Orientation: alert and oriented x 3 Testing Laboratory Results 05/11/20 11:47 05/11/20 12:23 05/11/20 11:18 POC Glucose 72
[2020-05-11] MEDS ORDERED: NALOXONE HCL 1 MG in SODIUM CHLORIDE 0.9% 1000ML 1,000 ML IV PRN (13:03)
[2020-05-11] MEDS ORDERED: ONDANSETRON INJ 2 MG/ML 2 ML VIAL IV PRN (13:03)
[2020-05-11] MEDS ORDERED: ePHEDrine sulfate 50 MG/ML AMP IV PRN (13:03)
[2020-05-11] MEDS ORDERED: MoRPHine SULFATE PF 1 MG/ML 10 ML AMP/VIAL INT SPINAL ONE (13:03)
[2020-05-11] MEDS ORDERED: PROMETHAZINE HCL 25 MG in SODIUM CHLORIDE 0.9% 50 ML IV PRN (13:03)
[2020-05-11] MEDS ORDERED: MoRPHine SULFATE 2 MG/ML CARP IV PRN (13:03)
[2020-05-11] MEDS ORDERED: NALOXONE HCL 0.4 MG/1 ML VIAL/CARP IV PRN (13:03)
[2020-05-11] MEDS ORDERED: diphenhydrAMINE 50 MG/ML VIAL IV PRN (13:03)
[2020-05-11] MEDS ORDERED: LACTATED RINGER'S 500 ML IV PRN (13:03)
[2020-05-11] MEDS ORDERED: NALOXONE HCL 0.08 MG in SYRINGE 1.8 ML IV PRN (13:03)
[2020-05-11] MEDS ORDERED: SODIUM CHLORIDE 0.9% 1000ML 1,000 ML IV SCH (13:15)
[2020-05-11] MEDS ORDERED: DC INTRASPINAL MORPHINE SCH (13:15)
[2020-05-11] MEDS ORDERED: NO NARCOTICS OR SEDATIVES SCH (13:15)
[2020-05-11] MEDS ORDERED: ePHEDrine sulfate 50 MG/ML SYR ONE (13:56)
[2020-05-11] MEDS ORDERED: PHENYLEPHRINE 100MCG/ML 5ML SYR ONE (13:56)
[2020-05-11] MEDS ORDERED: BENZOCAINE 20% AER SPR 82.5 GM CAN EXT PRN (14:18)
[2020-05-11] MEDS ORDERED: DIPHTHERIA/TETANUS/PERTUSSIS 0.5 ML SYR/VIAL IM ONE (14:18)
[2020-05-11] MEDS ORDERED: SUPERCREAM 0.870% 15 GM JAR EXT PRN (14:18)
[2020-05-11] MEDS ORDERED: HYDROCORTISONE ACETATE 25 MG SUPP PR PRN (14:18)
[2020-05-11] MEDS ORDERED: MAGNESIUM HYDROXIDE SUSP 30 ML UDC PO PRN (14:18)
[2020-05-11] MEDS ORDERED: SENNA 8.6 MG TAB PO PRN (14:18)
[2020-05-11] MEDS ORDERED: IBUPROFEN 600 MG TAB PO PRN (14:18)
--- NOTE | 2020-05-11 14:26 | Post Operative Brief Note ---
PG Immediate Post Op with CF Date of Surgery May 11, 2020 Pre & Post Diagnosis Operation Date: 05/11/20 13:00 Pre-Op Diagnosis: Breech presentation of fetus Oligohydramnios Post-Op Diagnosis: Breech presentation of fetus Oligohydramnios I identified the patient and participated in the time-out.: Yes Procedure Operation Date: 05/11/20 13:00 Actual Procedures p Section in LD(Bilateral) - Martine May MD Surgeon Martine May MD Agricultural Economics Teacher [facility] Estimated Blood Loss 400 Findings Consistent with Post-Op Diagnosis Normal appearing uterus, bilateral fallopian tubes, and ovaries. Fetus in breech presentation. Viable female infant weighing 3145g w/ APGARS 8 and 8 and 1 and 5 respectively Specimens Specimen Description: A. Placenta - exam B. Cord Blood Drains Gómez Catheter Anesthesia Type Spinal Complications none Disposition Accompanied Patient To Recovery: Yes Disposition: L&D
--- NOTE | 2020-05-11 15:06 | Anesthesiology Progress Note ---
Date of Service May 11, 2020 Anesthesia Post Procedure Vital Signs Vital Signs: Temp Pulse Resp BP Pulse Ox 05/11/20 15:00 78 95 05/11/20 14:55 98 H 96 05/11/20 14:52 93 H 87 L 05/11/20 14:49 99 H 100 05/11/20 14:45 93 H 92 05/11/20 14:44 90 127/65 99 05/11/20 14:39 89 99 05/11/20 14:34 87 98 05/11/20 14:33 92 H 122/63 05/11/20 14:29 94 H 98 05/11/20 14:25 97 H 130/60 05/11/20 14:24 102 H 99 05/11/20 12:51 93 H 143/79 H 05/11/20 12:37 88 138/83 05/11/20 12:06 88 145/85 H 05/11/20 11:51 94 H 140/84 05/11/20 10:48 37.3 C 20 05/11/20 10:45 37.3 C 100 H 20 142/89 H Transfer of Care Handoff Completed per policy Notes Mental Status: alert / awake / arousable and participated in evaluation Patient Amnestic to Procedure: Yes Nausea / Vomiting: adequately controlled Pain: adequately controlled Airway Patency, RR, SpO2: stable & adequate BP & HR: stable & adequate Hydration State: stable & adequate Anesthetic Complications: no major complications apparent and Pt Satisfied with anesthetic care
--- NOTE | 2020-05-11 15:08 | Operative Report (OR) ---
DATE OF OPERATION: 05/11/2020 PREOPERATIVE DIAGNOSES: 1. Single intrauterine at 39 weeks gestational age. 2. Breech presentation. 3. Oligohydramnios. 4. Velamentous cord insertion. 5. A1 gestational diabetes. 6. Hypothyroid. 7. Vanishing twin. 8. High risk genetic screening. 9. Father of the baby with congenital heart defect, echocardiogram normal. POSTOPERATIVE DIAGNOSES: 1. Single intrauterine at 39 weeks gestational age. 2. Breech presentation. 3. Oligohydramnios. 4. Velamentous cord insertion. 5. A1 gestational diabetes. 6. Hypothyroid. 7. Vanishing twin. 8. High risk genetic screening. 9. Father of the baby with congenital heart defect, echocardiogram normal. 10. Delivered. PROCEDURE: Primary low transverse section. SURGEON: Martine May MD. CERTIFIED MEDICAL ASSISTANT: Didier Mejia MD. ANESTHESIA: Spinal. ESTIMATED BLOOD LOSS: 400 mL. DRAINS: Gómez draining clear urine. SPECIMENS: Placenta, cord blood. COMPLICATIONS: None. CONDITION: Mother and are stable in the immediate period. FINDINGS: Normal-appearing uterus, bilateral fallopian tubes and ovaries. Fetus in confirmed breech position prior to delivery. Findings also include a viable female weighing 3145 grams with Apgars of 8 and 8 at one and five minutes, respectively. INDICATIONS: Lazara is a 29-year-old G2, P1-0-0-1, at 39 weeks' gestational age with an EDC of 05/18/2020 by LMP consistent with first trimester ultrasound. She was seen today as a return OB for a planned primary section tomorrow secondary to breech presentation; however, her NST was nonreactive. She subsequently underwent a BPP of 12/19 and there was no measurable fluid pocket. Given her gestational age and suspected oligo/anhydramnios, recommendation was for delivery. She notes movement, denied contractions, leaking of fluid or vaginal bleeding. Category 1 tracing was obtained prior to delivery. Consents were reviewed and signed. DESCRIPTION OF OPERATION: The patient was taken to the operating room after consent was ensured. She was properly identified. Spinal anesthesia was obtained without difficulty. The patient was then placed in dorsal supine position with left lateral tilt. Ancef was provided for antibiotic prophylaxis. Anesthesia was then tested to ensure adequate surgical levels. Pfannenstiel skin incision was performed and carried down to the underlying fascia with a knife. Fascia was then nicked in the midline and extended laterally with pickjaquelin and Tai scissors. The superior portion of the fascia was grasped with Kochers x2 and elevated off the underlying rectus muscles using blunt dissection. Inferior portion of the fascia was grasped with Kochers x2 and elevated off the underlying muscles with blunt dissection. Midline was and peritoneum was then entered bluntly and extended to provide adequate room for delivery of baby. Hand was inserted in the abdomen and uterus was noted to be clear of adhesions. An Karl retractor was placed. Bladder flap was created in the usual fashion. Bladder blade was inserted. A low transverse uterine incision was then made in the uterus and extended bluntly in a superior to inferior fashion. Amniotomy was made at this time with clear fluid at the time of rupture. breech was grasped and elevated through the hysterotomy in an atraumatic fashion. Bilateral hips were delivered using the Pinard maneuver atraumatically. A moist blue towel was wrapped around the body and delivered to the level of the scapula, at which point the left arm was swept across the chest and delivered atraumatically. The same was performed on the contralateral side. head was then spontaneously delivered in an atraumatic fashion. There was a nuchal cord x2 that was delivered through. A delayed cord clamping was performed for 60 seconds after nose and mouth were bulb suctioned on the surgical field. Cord was double clamped and cut. Baby was handed off to awaiting NICU staff. Cord segment and blood were obtained. Placenta was then expressed from the uterus. Uterus was exteriorized. Several passes were made inside the uterus to remove any remaining membranes. Attention was then turned to the hysterotomy, which was then closed with a running locked suture of 0 Vicryl on a CTX needle. There was excellent hemostasis. Posterior cul-de-sac was inspected and cleaned of all clot and debris. Hysterotomy was again inspected and noted to be hemostatic. The uterus was returned to the abdomen. Right and left pericolic gutters were cleaned of all clot and debris. Hysterotomy was noted to have a few areas of very small bleeding, which were made hemostatic with Bovie cautery. Jordon was then applied to the hysterotomy and excellent hemostasis was noted. Karl retractor was then removed. The space of Retzius was noted to be hemostatic. Fascia was then closed with a running suture of 0 Vicryl on a CT1 needle. Subcutaneous tissue was copiously irrigated and noted to be hemostatic. Subcutaneous tissue was reapproximated using 2-0 plain gut. Skin was then closed using a running suture of 3-0 Monocryl in a subcuticular fashion. At termination of the procedure, fundal pressure was applied and moderate amount of lochia was expressed. Pressure dressing was applied and she tolerated the procedure well. At conclusion of the procedure, all sponge, needle and instrument counts were correct x2. I attest to the content of the Intraoperative Record and any orders documented therein. Any exceptions are noted below. MTDD
[2020-05-11] MEDS: OXYTOCIN 20 UNITS in LACTATED RINGER'S 1,000 ML IV SCH ×2 (15:10→21:19)
[2020-05-11] MEDS: DOCUSATE SODIUM 100 MG CAP PO SCH (21:21)
[2020-05-11] MEDS: SIMETHICONE 80 MG CHEW PO SCH ×2 (21:21→21:27)
[2020-05-11] MEDS: KETOROLAC 30 MG/ML VIAL IV PRN (21:22)
[2020-05-11] MEDS: LACTATED RINGER'S 1,000 ML IV SCH ×2 (21:27→22:50)
--- NOTE | 2020-05-12 05:59 | Obstetrical Progress Note ---
Date of Service <Forrest Fernando MD - Last Filed: 05/12/20 06:44> May 12, 2020 Assessment & Plan <Forrest Fernando MD - Last Filed: 05/12/20 06:44> (1) : - PNL: Rh pos, RI, GBS neg, COVID neg - Feels well today. Eating well, voiding well, ambulating well - Pain well controlled with ibuprofen 600mg Q4H PRN - Routine postoperative care -- OOB, ambulation, diet progression as tolerated - After discharge will have 6 week follow-up with Dr. Yadira Lima #:: 1 Subjective <Forrest Fernando MD - Last Filed: 05/12/20 06:44> Lazara is a 29 y/o female who is POD #1 following emergency delivery at 39 weeks due to breech presentation and oligohydramnios. She reports feeling well overall this morning. Light abdominal cramping and 2/10 pain well managed on analgesics. Voiding well. Tolerating meals overnight without difficulty. Patient has been able to ambulate some. Is passing gas. no bowel mo vement yet. Has persistent lochia with some improvement this morning. Currently . Review of Systems Denies fever or chills. Denies shortness of breath or cough. Denies chest pain. Denies breast pain. Denies dysuria. Denies leg pain or leg swelling. Denies headache or changes in vision. Physical Exam <Forrest Fernando MD - Last Filed: 05/12/20 06:44> General: Alert, oriented. No acute distress. Cardiac: Regular rate and rhythm. No murmurs. Respiratory: Clear to auscultation bilaterally a/p, no wheezes/rales/rhonchi. No increased work of breathing. Symmetrical chest rise. No respiratory distress. Abdomen: Soft, nontender, nondistended. Bowel sounds present. Uterus: Uterine fundus firm, palpable 1 cm below umbilicus. Surgical scar clean and healing well. Lower Extremities: No lower extremity edema or swelling. No deep calf pain. Isaac's negative bilaterally. Results & Data ([facility]) <Forrest Fernando MD - Last Filed: 05/12/20 06:44> Vital Signs (Past 12 Hours) Vital Signs Temp Pulse Pulse Resp BP BP Pulse Ox 05/12/20 05:10 16 97 05/12/20 04:40 36.8 C 84 16 131/81 99 05/12/20 03:10 16 98 05/12/20 02:10 18 98 05/12/20 01:30 18 99 05/12/20 00:15 36.8 C 84 16 131/81 99 05/11/20 23:55 18 99 05/11/20 22:30 18 98 05/11/20 21:15 36.8 C 74 18 134/76 98 05/11/20 20:55 36.6 C 86 18 123/78 96 05/11/20 19:30 18 97 05/11/20 18:56 90 123/65 05/11/20 18:55 89 100 05/11/20 18:50 102 H 100 05/11/20 18:45 92 H 100 05/11/20 18:40 96 H 100 05/11/20 18:35 110 H 100 05/11/20 18:30 97 H 100 05/11/20 18:26 88 131/72 05/11/20 18:25 91 H 100 05/11/20 18:20 93 H 100 05/11/20 18:15 106 H 100 05/11/20 18:10 101 H 100 05/11/20 18:05 91 H 100 05/11/20 18:00 93 H 100 <Martine May MD - Last Filed: 05/12/20 07:10> Co-Signing Physician Notes Resident Physician Supervision Note: I interviewed and examined the patient. Discussed with Dr. West and agree with findings and plan as documented in the note. Any exceptions or clarifications are listed here: Dressing c/d/i, will remove today and leave to air. Feels well this morning, H/H appropriate, good UOP overnight. Continue routine care Documented By: Martine May MD Resident Activity Tracking <Forrest Fernando MD - Last Filed: 05/12/20 06:44> Resident Involvement: Resident Care Provided Care Provided: OB Delivery
[2020-05-12 06:00] LABS: Basophils # (auto) 0.02 K/uL (0-0.2); Basophils % (auto) 0.2 %; Eosinophils # (auto) 0.11 K/uL (0-0.5); Eosinophils % (auto) 0.9 %; Hematocrit (blood only) 31.6 % (37-47); Hemoglobin 10.7 g/dL (12.0-16.0); Immature Granulocytes # (auto) 0.04 K/uL (0.00-0.02); Immature Granulocytes % (auto) 0.3 %; Lymphocytes # (auto) 2.26 K/uL (1.2-3.4); Lymphocytes % (auto) 19.5 %; Mean Corpuscular Hemoglobin 28.9 pg (25-34); Mean Corpuscular Hgb Conc 33.9 g/dL (32-36); Mean Corpuscular Volume 85.4 fL (80-100); Mean Platelet Volume 10.9 fL (7.4-10.4); Monocytes # (auto) 1.03 K/uL (0.11-0.59); Monocytes % (auto) 8.9 %; Neutrophils # (auto) 8.13 K/uL (1.4-6.5); Neutrophils % (auto) 70.2 %; Platelet Count 183 K/uL (130-400); RDW Coefficient of Variation 14.4 % (11.5-14.5); RDW Standard Deviation 44.9 fL (36.4-46.3); White Blood Count 11.59 K/uL (4.8-10.8)
[2020-05-12] MEDS: KETOROLAC 30 MG/ML VIAL IV PRN (06:29)
[2020-05-12] MEDS: LEVOTHYROXINE SODIUM 150 MCG TABLET PO SCH (06:30)
[2020-05-12] MEDS ORDERED: diphenhydrAMINE Capsule 25 MG CAP PO PRN (07:15)
[2020-05-12] MEDS ORDERED: ONDANSETRON INJ 2 MG/ML 2 ML VIAL IV PRN (07:15)
[2020-05-12] MEDS ORDERED: PROMETHAZINE HCL 25 MG in SODIUM CHLORIDE 0.9% 50 ML IV PRN (07:15)
[2020-05-12] MEDS ORDERED: diphenhydrAMINE 50 MG/ML VIAL IV PRN (07:15)
[2020-05-12] MEDS ORDERED: oxyCODONE/ACETAMINOPHEN 5mg/325mg TAB PO PRN (07:15)
[2020-05-12] MEDS: DOCUSATE SODIUM 100 MG CAP PO SCH ×2 (07:53→20:22)
[2020-05-12] MEDS: SIMETHICONE 80 MG CHEW PO SCH ×4 (07:53→20:22)
[2020-05-12] MEDS: PRENATAL VITAMIN 1 TAB PO SCH (07:54)
[2020-05-12] MEDS: FERROUS SULFATE 325 MG TAB PO SCH (07:54)
--- NOTE | 2020-05-12 09:04 | Anesthesiology Progress Note ---
Date of Service May 12, 2020 Anesthesia Post Procedure Vital Signs Vital Signs: Temp Pulse Pulse Resp BP BP Pulse Ox 05/12/20 05:10 16 97 05/12/20 04:40 36.8 C 84 16 131/81 99 05/12/20 03:10 16 98 05/12/20 02:10 18 98 05/12/20 01:30 18 99 05/12/20 00:15 36.8 C 84 16 131/81 99 05/11/20 23:55 18 99 05/11/20 22:30 18 98 05/11/20 21:15 36.8 C 74 18 134/76 98 05/11/20 20:55 36.6 C 86 18 123/78 96 05/11/20 19:30 18 97 05/11/20 18:56 90 123/65 05/11/20 18:55 89 100 05/11/20 18:50 102 H 100 05/11/20 18:45 92 H 100 05/11/20 18:40 96 H 100 05/11/20 18:35 110 H 100 05/11/20 18:30 97 H 100 05/11/20 18:26 88 131/72 05/11/20 18:25 91 H 100 05/11/20 18:20 93 H 100 05/11/20 18:15 106 H 100 05/11/20 18:10 101 H 100 05/11/20 18:05 91 H 100 05/11/20 18:00 93 H 100 05/11/20 17:56 103 H 138/83 05/11/20 17:55 102 H 100 05/11/20 17:50 92 H 100 05/11/20 17:45 96 H 100 05/11/20 17:40 86 100 05/11/20 17:35 97 H 100 05/11/20 17:30 87 100 05/11/20 17:26 96 H 139/66 05/11/20 17:25 97 H 100 05/11/20 17:20 88 100 05/11/20 17:15 93 H 100 05/11/20 17:10 93 H 100 05/11/20 17:05 99 H 100 05/11/20 17:00 91 H 100 05/11/20 16:56 73 133/74 05/11/20 16:55 75 100 05/11/20 16:50 92 H 100 10/29/20 16:45 81 100 05/11/20 16:40 80 100 05/11/20 16:35 85 100 05/11/20 16:30 88 99 05/11/20 16:26 88 132/80 05/11/20 16:25 87 100 05/11/20 16:20 83 99 05/11/20 16:15 76 100 05/11/20 16:10 89 100 05/11/20 16:05 85 99 05/11/20 16:00 86 99 05/11/20 15:55 87 20 124/71 100 05/11/20 15:50 75 99 05/11/20 15:45 75 99 05/11/20 15:43 72 126/67 05/11/20 15:40 85 99 05/11/20 15:35 84 98 05/11/20 15:33 68 123/69 05/11/20 15:30 74 97 05/11/20 15:25 74 20 97 05/11/20 15:23 79 123/74 05/11/20 15:20 78 96 05/11/20 15:15 76 20 97 05/11/20 15:13 72 122/76 05/11/20 15:10 79 118/60 96 05/11/20 15:06 97 H 217/130 H 05/11/20 15:05 81 18 96 05/11/20 15:00 78 95 05/11/20 14:55 98 H 18 96 05/11/20 14:52 93 H 87 L 05/11/20 14:49 99 H 100 05/11/20 14:45 93 H 18 92 05/11/20 14:44 90 127/65 99 05/11/20 14:39 89 99 05/11/20 14:35 20 05/11/20 14:34 87 98 05/11/20 14:33 92 H 122/63 05/11/20 14:29 94 H 98 05/11/20 14:25 36.5 C 97 H 20 130/60 05/11/20 14:24 102 H 99 05/11/20 12:51 93 H 143/79 H 05/11/20 12:37 88 138/83 05/11/20 12:06 88 145/85 H 05/11/20 11:51 94 H 140/84 05/11/20 10:48 37.3 C 20 05/11/20 10:45 37.3 C 100 H 20 142/89 H Pain Intensity Abdomen: Pain Intensity: 2 Transfer of Care Handoff Completed per policy Notes Mental Status: alert / awake / arousable Patient Amnestic to Procedure: Yes Nausea / Vomiting: adequately controlled Pain: adequately controlled Airway Patency, RR, SpO2: stable & adequate BP & HR: stable & adequate Hydration State: stable & adequate Neuraxial Anesthesia: was administered and sensory block resolved Anesthetic Complications: no major complications apparent and Pt Satisfied with anesthetic care
[2020-05-12] MEDS ORDERED: bisacodyL 5 MG TABEC PO SCH (20:00)
--- NOTE | 2020-05-13 06:19 | Obstetrical Progress Note ---
Date of Service <Forrest Fernando MD - Last Filed: 05/13/20 07:07> May 13, 2020 Assessment & Plan <Forrest Fernando MD - Last Filed: 05/13/20 07:07> (1) : - PNL: Rh pos, RI, GBS neg, COVID neg - Feels well today. Eating well, voiding well, ambulating well - Pain well controlled with ibuprofen 600mg Q4H PRN - Routine postoperative care -- OOB, ambulation, diet progression as tolerated - After discharge will have 6 week follow-up with Dr. May - Anticipate discharge today Subjective <Forrest Fernando MD - Last Filed: 05/13/20 07:07> Lazara is a 29 y/o female who is POD #2 following emergency delivery at 39 weeks due to oligohydramnios/breech presentation. She reports feeling well overall this morning. Light abdominal cramping and 1/10 pain well managed on analgesics. Voiding well. Tolerating meals overnight without difficulty. Patient has been able to ambulate some. Is passing gas and had bowel movement. Has persistent lochia with some improvement this morning. Currently .Patient feels ready for discharge. Review of Systems Denies fever or chills. Denies shortness of breath or cough. Denies chest pain. Denies breast pain. Denies dysuria. Denies leg pain or leg swelling. Denies headache or changes in vision. Physical Exam <Forrest Fernando MD - Last Filed: 05/13/20 07:07> General: Alert, oriented. No acute distress. Cardiac: Regular rate and rhythm. No murmurs. Respiratory: Clear to auscultation bilaterally a/p, no wheezes/rales/rhonchi. No increased work of breathing. Symmetrical chest rise. No respiratory distress. Abdomen: Soft, nontender, nondistended. Bowel sounds present. Uterus: Uterine fundus firm, palpable 2 cm below umbilicus. Surgical scar clean and healing well. Lower Extremities: No lower extremity edema or swelling. No deep calf pain. Isaac's negative bilaterally. Results & Data ([facility]) <Forrest Fernando MD - Last Filed: 05/13/20 07:07> Vital Signs (Past 12 Hours) Vital Signs Temp Pulse Resp BP 05/13/20 00:01 36.4 C L 91 H 16 125/84 <Shawna Pena DO - Last Filed: 05/13/20 07:52> Co-Signing Physician Notes Resident Physician Supervision Note: I was present with Dr. West during the history and exam. I discussed the case with the resident and agree with the findings and plan as documented in the note. Any exceptions or clarifications are listed here: POD#2 doing well, DC home today. Reviewed instructions. Documented By: Shawna Pena DO Resident Activity Tracking <Forrest Fernando MD - Last Filed: 05/13/20 07:07> Resident Involvement: Resident Care Provided Care Provided: OB Delivery
[2020-05-13 06:40] LABS: Hematocrit (blood only) 30.6 % (37-47); Hemoglobin 9.9 g/dL (12.0-16.0)
[2020-05-13] MEDS: LEVOTHYROXINE SODIUM 150 MCG TABLET PO SCH (06:45)
[2020-05-13] MEDS: SIMETHICONE 80 MG CHEW PO SCH (08:05)
[2020-05-13] MEDS: FERROUS SULFATE 325 MG TAB PO SCH (08:05)
[2020-05-13] MEDS: DOCUSATE SODIUM 100 MG CAP PO SCH (08:05)
[2020-05-13] MEDS: PRENATAL VITAMIN 1 TAB PO SCH (08:05)
[2020-05-13] MEDS ORDERED: bisacodyL 10 MG SUPP PR PRN (14:18)
--- NOTE | 2020-05-16 07:11 | Discharge Summary ---
Date of Service May 16, 2020 Admission HPI Per Admitting Provider 29 y/o at 39 wga w/ ZEV 05/18/20 by LMP 08/12/19 c/w 1st tri US presents to L&D for delivery. Pt was seen today as pre-op in clinic for planned primary CS tomorrow due to breech presentation. At [facility] today, NST obtained for velamentous cord insertion was NR. BPP 6/8, -2 due to no measurable fluid pocket. Given GA and anhydramnios, recommended to present to L&D for delivery. On arrival +FM and irreg ctx; denies LOF or VB PNI: 1. Breech presentation 2. Vanishing twin ~8wks 3. HR panorama x 3, unclear if due to aneuploidy of current fetus or from vanishing twin. Was offered MFM c/s, pt did not see them and would not accept invasive testing 4. Velamentous cord insertion 5. A1GDM, reports postprandials 120s-130s, was told did not need to do fastings 6. Hypothyroid, synthroid 150mcg. Needs to re-est with PCP for mgt pp 7. FOB w/ CHD did not need surgery, echo wnl 8. Hx chlamydia 09/2019, neg JOHNATHAN at 28 wks Past [employer] Hx: G1 at 40 wks G2 current Menarche 12, periods irreg prev and needed provera due to PCOS Hx chlamydia in this Last pap 09/2019 ASCUS/-HPV Admission Exam (Per Admitting) Constitutional WD/WN, vitals as above no acute distress Respiratory normal respiratory effort; no respiratory distress and no labored breathing Gastrointestinal (Abdomen) Inspection/Auscultation: abdomen normal to inspection Percussion/Palpation: abdomen soft (gravid); abdomen nontender and no guarding Genitourinary OB Exam Abdomen: + breech (by BSUS on L&D) and + irregular contractions OB Exam Monitor Tracing: + external FHT monitor used, + external uterine monitor used and + category I (140/mod/+accel/-decel) Discharge Data Consultations 05/11/20 11:35 Consult Anesthesiology Stat Procedures Performed Operation Date: 05/11/20 13:00 Actual Procedures p Section in LD(Bilateral) - Martine May MD Operation Date: 05/12/20 07:30 <No data on this case meets the specified criteria> Hospital Course (1) Breech presentation of fetus: 29 y/o at 39 wga presenting with anhydramnios and breech presentation. Fetus cat 1 on admission. Anhydramnios - given new dx would rec delivery today rather than defer delivery until scheduled CS tomorrow. BSUS confirmed breech presentation still, Discussed ECV vs CS, pt had previously declined ECV and declined today. Discussed indications, risks, benefits, and alternatives to CS w/ risks for CS including infection, bleeding, injury to adjacent structures (bowel, bladder, ureters, blood vessels, nerves, baby), possible need for life saving blood transfusion and/or hysterectomy. Pt and verbalized understanding, consent signed. See operative report for details. Postop course was uncomplicated and she was discharged home on POD2 Coding Level of Care Code None Diagnoses Breech presentation of fetus O32.1XX0
== END 2020-05-13 10:59 | disposition home or self-care (01) | DRG 787 ==
LOC: EDSTATUS 10:36 → OPB 10:36 → 4S1 10:37 → 4S2 20:29 → EDSTATUS 05-12 09:05